=== PATIENT | male | born 1935 | race Caucasian/White ===

== ENCOUNTER 2018-04-04 15:37 | Emergency (ER) | payer MEDICARE ==
[2018-04-04 16:07] VITALS: BP 127/70
--- NOTE | 2018-04-04 16:43 | UC ---
Ji Vickers Rebecca, scribed for Daxa Yi MD on 04/04/18 at 1610 . General HPI - HPI Summary HPI Summary: Pt is an 83 y/o M who presents to [facility] accompanied by his partner Ana c/o fatigue. Pt also noted to have episodes of decreased blood pressure and elevated HR (90s) per family. The pt also reports 2 episodes during which he experienced aphasia described as difficulty findings words. Speech has been slow and fragmented, but appropriate. Each episode lasted about 5-10 minutes, which the pt described as "the words started coming out different" during which he "really had to concentrate." Pt was aware of what he was trying to say and that his words were not coming out correctly. Partner reports that during these episodes his words were "much slower than usual" though they made sense together. The first episode was last week and the second was at 1100 today, shorter than the prior. During these episodes he did not experience any CP, SOB , numbness, tingling, difficulty balancing, MEYERS, and vision changes. Additionally notes intermittent episodes of dizziness, with none currently. Partners reports occasional episodes of nausea, hypotension and elevated heart rate. Has never fallen and hit his head. Is not on blood thinners (supposed to take 81 mg ASA, but does not). PMHx HLD, HTN - is on medication of which he has been compliant without any missed doses. Does not have a PCP in [place] as he lives predominantly in [place], [place]. Pt's medications reviewed this visit - History of Current Complaint Chief Complaint: UCGeneralIllness Stated Complaint: FATIGUE Time Seen by Provider: 04/04/18 16:08 Hx Obtained From: Patient Onset/Duration: Still Present - Fatigue Timing: Intermittent Episodes Lasting: - Intermittent episodes of aphasia 5-10 minutes in length Current Severity: None Pain Intensity: 0 Pain Location at: NEGATIVE Aggravating: Nothing Alleviating: Nothing Associated Signs & Symptoms: Positive: Other - Fatigue, intermittent aphasia - Allergy/Home Medications Allergies/Adverse Reactions: Allergies Allergy/AdvReac Type Severity Reaction Status Date / Time Penicillins Allergy Rash Verified 04/04/18 15:53 Home Medications: Home Medications Iron 18 mg PO DAILY 04/04/18 [History Confirmed 04/04/18] Rosuvastatin Calcium [Crestor] 20 mg PO DAILY 04/04/18 [History Confirmed ] PMH/Surg Hx/FS Hx/Imm Hx - Additional Past Medical History Additional PMH: PMHx: HTN, Anemia Negative PMHx: COPD, DM, Thyroid disease, CVA Endocrine History: Dyslipidemia Cardiovascular History: Hypertension - Surgical History Surgical History: Yes Surgery Procedure, Year, and Place: bilat knee arthroscopies - Family History Known Family History: Positive: Cardiac Disease - parents, Other - stroke (uncle ) - Social History Occupation: Retired Lives: With Family Alcohol Use: Daily Alcohol Amount: 1 glass wine/ day Substance Use Type: None Smoking Status (MU): Former Smoker Review of Systems Constitutional: Fatigue, Other - Hypotension and elevated heart rate Skin: Negative Eyes: Negative ENT: Negative Respiratory: Negative Cardiovascular: Negative Gastrointestinal: Nausea Genitourinary: Negative Motor: Negative Neurovascular: Negative Musculoskeletal: Negative Neurological: Other - Intermittent aphasia and dizziness Psychological: Negative All Other Systems Reviewed And Are Negative: Yes - Comments Additional Review of Systems Comments: NEGATIVE: CP, SOB, numbness, tingling, difficulty balancing, MEYERS, and vision changes Physical Exam - Summary Physical Exam Summary: Vital Signs Reviewed: Yes A+Ox3, no distress Eyes: Conjunctiva Clear, MALCOLM. EOM intact and full ENT: Hearing grossly normal TM x 2 clear, mmoist, uvula midline, no exudate, no erythema Neck: Positive: Supple Respiratory: Positive: No respiratory distress, No accessory muscle use + CTA throughout no w/r Cardiovascular: RRR nl s1, s2 no m/r CBT <2 sec no bruits b/l abd soft + BS nt/nd no guarding, no distension Musculoskeletal Exam: GARCIA x 4 without difficulty Strength Intact, ROM Intact Psychological: Positive: Normal Response To Family Skin: Positive: no rash, no ecchymosis Neuro: A+Ox3 fluid speech - no dysarthria CN 2-12 intact and full + FNF b/l + heel/bee b/l 5/5 abduction, flex/ext elbow, wrist against resistant 5/5 SLE, flex/ext knee, ankle + great toe extension + gross sensation throughout no difficulty with ambulation NIH=0 Triage Information Reviewed: Yes Vital Signs: Initial Vital Signs Temp 98.1 F 04/04/18 15:56 Pulse 75 04/04/18 15:56 Resp 18 04/04/18 15:56 BP 127/70 04/04/18 15:56 Pulse Ox 100 04/04/18 15:56 Course/Dx - Course Course Of Treatment: Patient medications reviewed this visit. Allergies noted. Patient presents to urgent care with complaint of 2 episodes of difficulty with word finding. Patient states each episode lasted approximately 10 minutes. Last episode was at 11:00 this morning. Patient also reports some increased fatigue and episodes of dizziness. At the time of presentation patient does not have any complaints. Patient does have a history of hypertension as well as high cholesterol. Patient is prescribed 81 mg aspirin but does not take it. Patient does not have a primary care in the area. Patient does have a nurse liaison in [place] who tells him that his "heart is fine". Discussed with patient and his fiance concern for TIA his speech changes. Recommend patient continue emergency department for further evaluation and treatment. Patient and spouse comfortable with plan. Fianc will drive. Instructed the patient with any symptoms pulling unit floorhand and call [address] Mcmanus in the emergency department. Aware patient is coming and history provided by the pt at urgent care. - Differential Dx - Multi-Symptom Provider Diagnoses: dizziness. speech fluency changes - resolved Discharge - Sign-Out/Discharge Documenting (check all that apply): Discharge/Admit/Transfer - Discharge - Discharge Plan Condition: Stable Disposition: HOME Referrals: No Primary Care Phys,NOPCP [Primary Care Provider] - Additional Instructions: The doctor who evaluated you today is concerned that your symptoms may be related to a TIA, mini stroke. It is recommended that you go directly to the emergency department for further evaluation and treatment. It is okay that you go by private car;however, your financee. If you develop any symptoms or have concerns or changes, it is recommended to pulling unit floorhand and call 911. The emergency department at [facility] has been notified that you are coming for evaluation. - Billing Disposition and Condition Condition: STABLE Disposition: Home The documentation as recorded by the Ji blount Rebecca accurately reflects the service I personally performed and the decisions made by me, Daxa Yi MD.
== END 2018-04-04 16:35 | disposition home or self-care (01) ==
LOC: UCEAST 15:37
DX: R42 Dizziness and giddiness (principal); R53.83 Other fatigue; R47.01 Aphasia; Z88.0 Allergy status to penicillin; E78.5 Hyperlipidemia, unspecified; I10 Essential (primary) hypertension; Z82.49 Family history of ischemic heart disease and other diseases of the circulatory system; Z82.3 Family history of stroke; Z87.891 Personal history of nicotine dependence
CPT/HCPCS: 99202; G0463

== ENCOUNTER 2018-04-04 17:12 | Observation (INO) | payer MEDICARE ==
[2018-04-04 18:00] LABS: Hematocrit 37 % (42-52); Hemoglobin 12.5 g/dl (14.0-18.0); Mean Corpuscular HGB Conc 34 g/dl (31-36); Mean Corpuscular Hemoglobin 30 pg (27-31); Mean Corpuscular Volume 88 fL (80-94); Mean Platelet Volume 7.3 um3 (7.4-10.4); Platelet Count 231 10^3/ul (150-450); Red Blood Count 4.18 10^6/ul (4.00-5.40); Red Cell Distribution Width 14 % (10.5-15); White Blood Count 5.1 10^3/ul (3.5-10.8)
--- NOTE | 2018-04-04 18:06 | RAD ---
INDICATION: Weakness and slurred speech COMPARISON: None. TECHNIQUE: Contiguous axial sections of the brain were obtained from the skull base to the vertex without contrast. FINDINGS: The ventricles, cisterns and sulci mild symmetrical involutional changes. The macias-white matter differentiation is adequately maintained and there is no sulcal effacement. No significant focal abnormality or mass effect is present. There is no evidence for intracranial hemorrhage. No significant focal osseous abnormality is present. The visualized portion of the paranasal sinuses appear clear. The mastoid air cells are well aerated bilaterally. IMPRESSION: Normal CT of the brain.
[2018-04-04 18:07] LABS: INR 0.95 (0.77-1.02)
[2018-04-04 18:16] LABS: EGFR Non-African American 71.4 (>60)
[2018-04-04] MEDS ORDERED: Iohexol 350* (CONTRAST) 500 ML MDV IV ONE (19:06)
[2018-04-04] MEDS ORDERED: Ondansetron INJ* 2 MG/ML VIAL IV PRN (19:15)
[2018-04-04] MEDS ORDERED: Acetaminophen TAB* 325 MG PO PRN (19:15)
--- NOTE | 2018-04-04 20:10 | RAD ---
CPT II: CPT II Codes: 3100F INDICATION: Slurred speech COMPARISON: Same day noncontrast CT brain the TECHNIQUE: A CT angiogram of the head and neck was performed with 80 cc of Omnipaque 350. Contiguous axial sections were obtained from the thoracic inlet through the [place]. Images were reconstructed in the sagittal, coronal planes and in a 3-D volume rendered format. The distal cervical internal carotid artery diameter is used as the denominater for stenosis measurement. CTA NECK: The common and internal carotid arteries are patent without hemodynamically significant stenosis. Right: Below the carotid bifurcation the common carotid artery measures 6 mm in diameter. There is coarse calcification at the right carotid bulb but the bulb measures nearly 9 mm in short axis diameter. This yields 0% degree stenosis. Left: Below the carotid bifurcation the left common carotid artery measures 6 mm in diameter. There is eccentric coarse calcification at the carotid bulb narrowing the lumen to 7 mm yielding 0% degree stenosis. The vertebral arteries are patent without gross abnormality. CTA of the brain: The internal carotid, anterior and middle cerebral arteries appear are patent without high grade stenosis or occlusion. The right A1 segment of the anterior cerebral artery is diminutive relative to the left. 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 The vertebral, basilar and posterior cerebral arteries appear patent without high grade stenosis or occlusion. The right posterior cerebral artery branches off of the middle cerebral artery. Bilaterally the posterior communicating arteries appear to be absent. No focal luminal filling defect, aneurysm or vascular malformation is seen. IMPRESSION: 1. There is no hemodynamically significant stenoses at either carotid bulb. 2. Although there is no measurable stenosis at the left carotid bulb, there is coarse calcification that is eccentric extending into the lumen of the left carotid bulb. 3. 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 4. If there is strong clinical concern for acute infarction, MRI is advised.
[2018-04-04] MEDS ORDERED: Aspirin 81 mg CHEW TAB* 81 MG TAB.CHEW PO ONE (20:14)
--- NOTE | 2018-04-04 20:21 | RAD ---
HISTORY: Slurred speech COMPARISONS: Same day CTA of the head and neck TECHNIQUE: The following sequences were obtained of the head: Sagittal T1-weighted images, axial T2-weighted images, axial FLAIR images, axial susceptibility weighted images, axial T1-weighted images. Additionally, axial diffusion-weighted images were obtained with calculated apparent diffusion coefficients.. FINDINGS: HEMORRHAGE/INFARCT: There is no hemorrhage or acute infarct. MASSES/SHIFT: There is no mass or shift. EXTRA-AXIAL SPACES/MENINGES: There are no extra-axial fluid collections. SULCI AND VENTRICLES: There is symmetrical bilateral involutional change. CEREBRUM: There are scattered subcortical and periventricular T2 Bright hyperintensities as well as increased T2 signal adjacent to the ventricles most consistent with chronic microvascular disease. BRAINSTEM: There are no focal parenchymal abnormalities. CEREBELLUM: There are no focal parenchymal abnormalities. The cerebellar tonsils are normal in size and position. SELLA: The pituitary gland measures 1.3 x 1.5 cm in the axial plane and 1.4 cm in the cephalocaudal projection. The pituitary gland is hypointense on T1-weighted images and minimally hyperintense on T2-weighted imaging. Signal intensity is fairly homogenous. PINEAL: The pineal region is clear. CP ANGLE/TEMPORAL BONES: The labyrinthine structures are grossly normal. VESSELS: Normal flow-voids are noted within the visualized vertebral vasculature. DIFFUSION ABNORMALITIES: There are no diffusion abnormalities. PARANASAL SINUSES/MASTOIDS: The paranasal sinuses are clear. ORBITS: The orbits are unremarkable. BONES AND SOFT TISSUE: No bone or soft tissue abnormalities are noted. IMPRESSION: 1. 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 THERE IS NO MRI EVIDENCE OF FOCAL OR TERRITORIAL INFARCTION. IF THERE EXISTS CLINICAL CONCERN FOR ACUTE DEMYELINATING DISEASE, FURTHER CHARACTERIZATION WITH CONTRAST ENHANCEMENT IS ADVISED. 2. 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
[2018-04-04] MEDS: Heparin VIAL(*) 5000 UNITS/ML VIAL (FIVE THOUSAND) SUBCUT SCH (23:12)
[2018-04-05 00:09] LABS: Hematocrit 35 % (42-52)
--- NOTE | 2018-04-05 01:49 | HP ---
CC: Dr. Gonzalez, [place], ; Dr. Hu* HISTORY AND PHYSICAL: DATE OF ADMISSION: 04/04/18 PRIMARY CARE PROVIDER: Dr. Gonzalez in [place], phone number [phone] ATTENDING PHYSICIAN WHILE IN THE HOSPITAL: Dr. Kyung Doss* (report being dictated by Gianfranco Hernandez NP) CHIEF COMPLAINT: Difficulty with word finding. CONSULTING NEUROLOGIST: Dr. Hu. HISTORY OF PRESENT ILLNESS: Mr. Giraldo is an 83-year-old male patient. He has a history of hyperlipidemia, hypertension, and a history of anemia. He presents today stating that about a week ago, he noticed that during a meeting he was having difficulty with his speech. He noticed that he was having trouble finding his words. He says it lasted several minutes. He does not really know how long. He said it lasted for a while. He ignored this, but today again he noticed that he was having trouble with his speech, particularly getting his words out, lasted about 5 to 10 minutes. He had no facial drooping , no trouble with vision, no weakness to the one side. He stated he did not feel dizzy. He was not falling to one side. He denied having any focal weakness to one extremity. He was having a real hard time. He knew what he wanted to say, but he could not get the words out. The symptoms did resolve, but his partner was concerned and wanted him to be evaluated in the ER, so she decided to come in. Also, he does note that he has been feeling fatigued and weakened over the last several weeks. He says that he recently restarted taking his iron. He has a history of anemia. He says his last count of his hemoglobin was around 11. He said since starting taking the iron, he has felt a little nauseous and in addition to this, he has noticed that his stools have become dark. He denies having any abdominal pain or any nausea or vomiting. He denies any andra blood. He presented to the ED. There was concern of a possible TIA and we were asked to evaluate for admission. PAST MEDICAL HISTORY: Significant for: 1. Hypertension. 2. Hyperlipidemia. 3. Anemia. PAST SURGICAL HISTORY: Significant for: 1. Tonsillectomy. 2. Arthroscopy. HOME MEDICATIONS: Include: 1. Toprol-XL 50 mg daily. 2. Iron 18 mg daily. 3. Crestor 20 mg p.o. daily. ALLERGIES TO MEDICATIONS: Include PENICILLIN. FAMILY HISTORY: His mother had an [place] at the age of 91. Father had a history of CAD. SOCIAL HISTORY: He is a former smoker. He quit about 36 years ago. He does have 1 glass of wine at night. His surrogate decision maker is his Rosaura farley, and his daughter and son. REVIEW OF SYSTEMS: There is no documented fever. He denies any significant weight change. There is no double vision. There is no ear discharge. Denied having any rhinorrhea. No sore throat. No thyroid enlargement. Denies having any chest pain. There is no orthopnea. There is no nocturnal dyspnea. He denies having any abdominal pain. There is no nausea. No vomiting. No dysuria. No frequency. No seizure. There is no loss of conscious. No pruritus. No skin ulcerations. Review of 14 systems completed, all others negative. PHYSICAL EXAMINATION GENERAL: At this time, Mr. Giraldo is an 83-year-old male patient. He is sitting in the ED stretcher. He appears to be well-nourished, well-developed. He does not appear to be in any acute distress. VITAL SIGNS: Blood pressure 130/72, pulse 71, respirations are 18, O2 sat 98%, temperature 97.1. HEENT: Head: Atraumatic, normocephalic. Eyes: EOMs are intact. Sclerae were anicteric and not pale. Throat: Oral mucosa appears to be moist. No oropharyngeal erythema. NECK: Supple. LUNGS: Clear to auscultation. No wheezes, rales, or rhonchi. HEART: Sounds S1, S2. Regular rate and rhythm. No murmurs, rubs, or gallops. ABDOMEN: Soft, flat, nontender. Bowel sounds are present. EXTREMITIES: Pulses were 2+ throughout. He had +2 pitting edema in the lower extremities, but he says this is chronic for him. He says this is secondary to a leaky valve. Pulses were 2+ throughout. He had 5/5 strength. NEUROLOGIC: He is awake. He is alert. His speech is clear. His tongue is midline. His manager combination were equal. Navion-ev-ufpb intact bilaterally. Cranial nerves II through XII were intact. Rzbz-qp-[id number] intact bilaterally. He had good strength in all extremities. Again, speech is fluent and clear. No gross focal deficits. SKIN: Intact. DIAGNOSTIC STUDIES/LAB DATA: WBC of 5.1, RBC of 4.18, hemoglobin 12.5, hematocrit 37, platelet count 231. INR 0.95, PTT of 25.8. Sodium is 132, potassium 4, chloride 98, bicarb 25, BUN 14, creatinine of 1.00, glucose was 98 , calcium 9.2. Total bili 0.6, AST 22, ALT 10, alk phos 49. Albumin of 3.7. Urine is pending. He did have a brain CT obtained today, impression: Normal CT of the brain. He had a CTA of the head and neck, impression: There is no hemodynamically significant stenosis at either carotid bulbs. Although there is no measurable stenosis at the left carotid bulb, there is a coarse calcification that is eccentric extending into the lumen of the left carotid bulb. 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 If there is strong clinical suspicion for acute infarct, MRI is advised. He did have an MRI done today, which revealed MRI findings are consistent with age- appropriate chronic microvascular disease. There is no MRI evidence of focal or territorial infarct. If there exists clinical concern for acute demyelinating disease, further characterization with contrast enhancement is advised. Mildly enlarged pituitary gland for the patient's age of uncertain clinical significance. He did have an EKG obtained today. I have no previous for comparison, but the EKG today did show normal sinus rhythm, rate of 71, no ST elevations. He had inverted T waves in lead III and no other significant findings were noted. Old medical records were reviewed. ASSESSMENT AND PLAN: Mr. Giraldo is an 83-year-old male patient coming into the emergency department today with complaints of difficulty with speech that has now resolved on evaluation. We were asked to evaluate due to possible transient ischemic attack. He will be admitted under observation status. 1. Transient ischemic attack. At this point, I did touch with Dr. Hu. MRI was negative. CTA is negative for any significant stenosis. I will admit him for telemetry, give him aspirin now, go ahead and get lipids, A1c in the morning, place him on telemetry, echo with bubble study, and get Neurology to evaluate. 2. History of weakness. This has been going on for about the last month. I am checking a TSH, B12, and cortisol. We will continue to follow. His H and H are stable. 3. Anemia. H and H again stable. We will follow this. I am repeating another H and H later tonight because of reported dark stools. We have not had any done here and I forwarded a Hemoccult just to be safe. I suspect this is probably secondary to the patient's iron intake. 4. Hypertension. Continue meds as prescribed. 5. Hyperlipidemia. Continue statin therapy. I am checking lipid panel. 6. DVT prophylaxis: I have ordered heparin subcu. 7. Code status: Full code 8. Fluids, electrolytes, nutrition: He can have a heart healthy diet. TIME SPENT: Time spent on admission 60 minutes, greater than half of the time spent [id number] with the patient obtaining my history and physical; other half of the time spent going over the plan of care with the patient and implementing plan of care. I did discuss the plan of care with my attending, Dr. Doss; she is in agreement. GIANFRANCO HERNANDEZ NP [id number]/[facility] #: [id number] TRAVIS
--- NOTE | 2018-04-05 02:30 | CONS ---
CC: Primary care physician NEUROLOGY CONSULT REPORT: DATE OF CONSULT: 04/04/18. REQUESTING PROVIDER: Gianfranco Hernandez NP REASON FOR CONSULT: A few minutes episode of aphasia HISTORY OF PRESENT ILLNESS: The patient is an 83-year-old right-handed male, who about 10 a.m. this morning had an episode that while he was talking to a director of real estate for selling his property he was not able to talk for a few minutes. He knew what he wanted to say, but the words were not coming out. This was not very obvious to the person whom he was talking to neither it was to his fiance. This episode lasted for not more than 2 to 3 minutes. He did not have any other associated symptoms at that time including no numbness in the face or arms or legs, or dizziness. Afterwards, his speech was not dysarthric. The patient had a similar episode in a similar situation (when he was talking to real estate about selling his property) last week that lasted a few minutes. In both occasions he thinks he became a bit exicted and emotional during the conversation prior to these events. He never had any similar episodes in the past. After a few minutes, the patient completely returned back to his baseline. He is not taking antiplatelets. PAST MEDICAL HISTORY: 1. Hypertension. 2. Hyperlipidemia. 3. He is also on iron pills for iron-deficiency anemia. PAST SURGICAL HISTORY: 1. Tonsillectomy 2. Arthroscopy. MEDICATIONS: Home medications include: 1. Crestor 20 mg p.o. daily. 2. Metoprolol XL 50 mg daily. 3. Iron pills 18 mg p.o. daily. ALLERGIES: PENICILLIN. FAMILY HISTORY: Negative for significant neurological disorders. Mother of [place] and father had history of coronary artery disease. SOCIAL HISTORY: The patient retired about 30 years ago. 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 He quit smoking about 30 years ago. No drugs. He drinks a glass of wine nightly. REVIEW OF SYSTEMS: Complete review of systems was performed and other than what was mentioned above is positive for feeling tired and fatigued in the past few weeks. PHYSICAL EXAM: Blood pressure is 143/78, respiratory rate 13, pulse rate 86. The patient is awake, alert, and oriented x3. Pupils are symmetric and reactive to light. Extraocular movements are intact. Visual ruiz are intact by confrontation. Face is symmetric with the strong facial muscles. -III intact to light touch and pinprick. Tongue is in midline. Palate elevates upwards. Motor exam is 5/5 throughout. There is no pronator drift. Sensation is intact to light touch, and pinprick in the upper and lower extremities. [id number] is intact bilaterally. Gait is narrow-based and steady. Deep tendon reflexes are 2+ in the upper and lower extremities and are symmetric. NIH Stroke Scale is 0. DIAGNOSTIC STUDIES/LAB DATA: WBC 5.1, hemoglobin 12.5, hematocrit 37, platelet 231. INR is 0.95. Sodium is 132. Chloride 98, BUN 14, AST 22, ALT 10. Imaging: By the time I saw the patient, an MRI of the brain had been done, which showed age-appropriate chronic microvascular disease. There is no MRI evidence of focal or territorial infarction. CT angiogram of the head and neck was also done, which includes no hemodynamically significant stenosis at either carotid bulb. ASSESSMENT AND PLAN: The patient is an 83-year-old male with two episodes of sudden difficulty with talking hat lasted a few minutes, one today and the other one last week. The symptoms warrants a workup for transient ischemic attack. The MRI of the brain and CT angiogram of the head and neck is already completed and are unremarkable. He needs an echocardiogram of the heart and telemonitoring. If no contraindication from GI standpoint to continue on antiplatelets. Continue statins. Discussed with the patient and his questions answered. [id number]/[facility] #: [id number] TRAVIS
[2018-04-05 03:28] LABS: Urine Appearance Clear; Urine Blood Negative (Negative); Urine Color Straw; Urine Ketones Negative (Negative); Urine Protein Negative (Negative); Urine Specific Gravity 1.015 (1.010-1.030); Urine Urobilinogen Negative (Negative)
[2018-04-05 05:35] LABS: ABS Basophils 0 10^3/ul (0-0.2); ABS Eosinophils 0.3 10^3/ul (0-0.6); ABS Lymphocytes 1.4 10^3/ul (1.0-4.8); ABS Monocytes 0.6 10^3/ul (0-0.8); ABS Neutrophils 2.2 10^3/ul (1.5-7.7); ABS Nucleated RBC 0 10^3/ul; Eosinophil % 6.1 % (0-6); Hematocrit 34 % (42-52); Hemoglobin 11.8 g/dl (14.0-18.0); Lymphocyte % 31.6 % (25-47); Mean Corpuscular HGB Conc 35 g/dl (31-36); Mean Corpuscular Hemoglobin 30 pg (27-31); Mean Corpuscular Volume 87 fL (80-94); Nucleated Red Blood Cells % 0; Platelet Count 229 10^3/ul (150-450); Red Cell Distribution Width 14 % (10.5-15); White Blood Count 4.5 10^3/ul (3.5-10.8)
[2018-04-05] MEDS: Heparin VIAL(*) 5000 UNITS/ML VIAL (FIVE THOUSAND) SUBCUT SCH ×2 (05:50→14:31)
[2018-04-05 05:52] LABS: EGFR Non-African American 76.6 (>60)
[2018-04-05] MEDS ORDERED: CMC:Rosuvastatin (NF) 20 MG TAB PO SCH (09:00)
[2018-04-05] MEDS ORDERED: Aspirin 81 mg CHEW TAB* 81 MG TAB.CHEW PO SCH (09:00)
[2018-04-05] MEDS ORDERED: IRON 18 MG PO SCH (09:00)
[2018-04-05] MEDS ORDERED: Metoprolol Succinate XL TAB* 50 MG PO SCH (09:00)
--- NOTE | 2018-04-05 12:02 | ECHO ---
Patient: JUAN CARLOS OJEDA [facility] Rec#: [id number] : 1935 Date: 04/05/2018 Age: 83y Height: 180.3 cm / 71.0 in Weight: 77.1 kg / 169.9 lbs Sex: M BSA: 2 Room#: [facility] Admit Date#: 04/04/2018 Type: Inpatient Referring: Gianfranco Hernandez NP Reading: Vikas Shah MD Agricultural Mechanic: Mckenzie Ortiz RN RDCS Transthoracic Echocardiogram Indication: TIA BP: 104/70 HR: 62 Rhythm: NSR Findings History: HTN, HLD, anemia, former smoker. Technical Comments: The study quality is fair. The study is technically limited due to the patient's smoking history. Completed at 1125. Left Ventricle: The left ventricular chamber size is decreased. Mild to moderate concentric left ventricular hypertrophy is observed. There is increased basal septal hypertrophy noted without evidence of an increased gradient across the left ventricular outflow tract. Global left ventricular wall motion and contractility are within normal limits. There is normal left ventricular systolic function. The estimated ejection fraction is 55-60%. There is an E to A reversal in the mitral valve flow pattern suggestive of diastolic dysfunction. Left Atrium: The left atrial chamber size is normal. Right Ventricle: The right ventricle wall thickness is mildly increased. The right ventricular cavity size is normal. The right ventricular global systolic function is normal. Right Atrium: The right atrial cavity size is normal. A patent foramen ovale is demonstrated by agitated contrast. Aortic Valve: The aortic valve is trileaflet. The aortic valve leaflets are mildly thickened. Systolic excursion of the aortic valve cusps is reduced. There is aortic annular calcification. There is trace to mild aortic regurgitation. There is mild aortic stenosis. Mitral Valve: Moderate mitral annular calcification present. The mitral valve leaflets are mildly thickened. There is mild mitral valve prolapse. There is mild mitral regurgitation. There is borderline mitral stenosis. Tricuspid Valve: The tricuspid valve leaflets are normal. There is trace to mild tricuspid regurgitation. Unable to estimate the right ventricular systolic pressure. There is no tricuspid stenosis. Pulmonic Valve: The pulmonic valve appears normal. There is a trace pulmonic regurgitation. There is no pulmonic stenosis. Pericardium: There is no significant pericardial effusion. A pericardial fat pad is visualized. Aorta: There is no dilatation of the ascending aorta. There is no dilatation of the aortic arch. 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 Pulmonary Artery: The main pulmonary artery is not well visualized. Venous: The inferior vena cava appears normal in size. There is a greater than 50% respiratory change in the inferior vena cava dimension. Contrast: Normal saline was used as contrast for the bubble study. Images 1 and 2. Summary: There was not any prior study for comparison. Conclusions The left ventricular chamber size is decreased. Mild to moderate concentric left ventricular hypertrophy is observed. There is increased basal septal hypertrophy noted without evidence of an increased gradient across the left ventricular outflow tract. The estimated ejection fraction is 55-60%. There is an E to A reversal in the mitral valve flow pattern suggestive of diastolic dysfunction. A patent foramen ovale is demonstrated by agitated contrast. Systolic excursion of the aortic valve cusps is reduced. There is trace to mild aortic regurgitation. There is mild aortic stenosis. There is mild mitral valve prolapse. There is mild mitral regurgitation. There is borderline mitral stenosis. There is trace to mild tricuspid regurgitation. Unable to estimate the right ventricular systolic pressure. There is a trace pulmonic regurgitation. 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 Measurements Name Value Normal Range RVDdMajor (2D) 3.1 cm (2.2 - 4.4) RVAW (2D) 0.6 cm (0.2 - 0.5) RAd ISD 4CH 4.8 cm (3.4 - 4.9) RA (A4C)W 3.8 cm (2.9 - 4.6) IVSd (2D) 1.4 cm (0.6 - 1) LVPWd (2D) 1.1 cm (0.6 - 1) LVIDd (2D) 3.3 cm (3.6 - 5.4) LVIDs (2D) 2.2 cm - LV FS (2D) 33 % (25 - 45) Aortic Annulus 2.4 cm (1.4 - 2.6) Ao root diameter (2D) 4.1 cm (2.1 - 3.5) Ascending Ao 3.3 cm (2.1 - 3.4) Aortic arch 2.7 cm (1.8 - 3.4) LA dimension (AP) 2D 3 cm (2.3 - 3.8) LAd ISD 4CH 4.4 cm (2.9 - 5.3) LA ISD 4CH W 3.9 cm (2.5 - 4.5) Name Value Normal Range LA ESV SP 4CH (A/L) 46 ml - LA ESV SP 2CH (A/L) 54 ml - LA ESV BP (A/L) 51 ml - LA ESV BP (A/L) index 26 ml/m2 - LA ESV SP 4CH (MOD) 43 ml - LA ESV SP 2CH (MOD) 51 ml - Name Value Normal Range MV E-wave Vmax 0.88 m/sec - MV deceleration time 259 msec - MV A-wave Vmax 1.1 m/sec - MV E:A ratio 0.83 ratio - LV septal e' Vmax 0.06 m/sec - LV lateral e' Vmax 0.07 m/sec - LV E:e' septal ratio 14.7 ratio - LV E:e' lateral ratio 12.6 ratio - Name Value Normal Range AV Vmax 1.6 m/sec - AV VTI 38.6 cm - AV peak gradient 9.6 mmHg - AV mean gradient 5 mmHg - LVOT diameter 2 cm - LVOT Vmax 0.81 m/sec - LVOT VTI 21.2 cm - LVOT peak gradient 2.7 mmHg - LVOT mean gradient 1.4 mmHg - DOI (VTI) 0.55 ratio - DOI (Vmax) 0.51 ratio - ABDON (continuity Vmax) 1.6 cm2 - ABDON (continuity VTI) 1.7 cm2 - JORDIN Vmax 0.38 m/sec - Name Value Normal Range MV Vmax 1.3 m/sec - MV VTI 39.9 cm - MV peak gradient 6.8 mmHg - MV mean gradient 2.4 mmHg - MV PHT 87 msec - MVA (PHT) 2.5 cm2 - MVA (continuity VTI) 1.7 cm2 - Name Value Normal Range IVC diameter 1.7 cm - Name Value Normal Range PV Vmax 0.84 m/sec -
[2018-04-05 12:27] VITALS: BP 104/52
--- NOTE | 2018-04-05 13:59 | RAD ---
INDICATION: Lower extremity soft tissue edema. Assess for DVT. COMPARISON: No relevant prior exams available on the [facility] PACS for comparison. TECHNIQUE: Yang scale, color Doppler, and spectral analysis of the deep veins of the BILATERAL lower extremities. Vessel compression, phasicity, and augmentation assessed. REPORT: The RIGHT common femoral, great saphenous, profunda femoral, femoral, popliteal, peroneal, and posterior tibial veins are patent. The LEFT common femoral, great saphenous, profunda femoral, femoral, popliteal, peroneal, and posterior tibial veins are patent. IMPRESSION: #. Negative for RIGHT or LEFT lower extremity DVT.
--- NOTE | 2018-04-05 17:47 | PN ---
Progress Note - Progress Note Date of Service: 04/05/18 SOAP: Neurology progress note Date of servie: 04/05/18 Subjective: I saw and examined the patient around 1pm today. Patient remained asymptomatic. Objective: Vital Signs Temp Pulse Resp BP Pulse Ox 97.3 F 65 16 104/52 98 04/05/18 12:08 04/05/18 12:08 04/05/18 12:08 04/05/18 12:08 04/05/18 12:08 Laboratory Last Values WBC 4.5 10^3/ul (3.5-10.8) 04/05/18 05:23 RBC 3.90 10^6/ul (4.00-5.40) L 04/05/18 05:23 Hgb 11.8 g/dl (14.0-18.0) L 04/05/18 05:23 Hct 34 % (42-52) L 04/05/18 05:23 MCV 87 fL (80-94) 04/05/18 05:23 MCH 30 pg (27-31) 04/05/18 05:23 MCHC 35 g/dl (31-36) 04/05/18 05:23 RDW 14 % (10.5-15) 04/05/18 05:23 Plt Count 229 10^3/ul (150-450) 04/05/18 05:23 MPV 7.0 um3 (7.4-10.4) L 04/05/18 05:23 Neut % (Auto) 47.7 % (38-83) 04/05/18 05:23 Lymph % (Auto) 31.6 % (25-47) 04/05/18 05:23 [place] % (Auto) 13.6 % (0-7) H 04/05/18 05:23 Eos % (Auto) 6.1 % (0-6) H 04/05/18 05:23 Baso % (Auto) 1.0 % (0-2) 04/05/18 05:23 Absolute Neuts (auto) 2.2 10^3/ul (1.5-7.7) 04/05/18 05:23 Absolute Lymphs (auto) 1.4 10^3/ul (1.0-4.8) 04/05/18 05:23 Absolute Monos (auto) 0.6 10^3/ul (0-0.8) 04/05/18 05:23 Absolute Eos (auto) 0.3 10^3/ul (0-0.6) 04/05/18 05:23 Absolute Basos (auto) 0 10^3/ul (0-0.2) 04/05/18 05:23 Absolute Nucleated RBC 0 10^3/ul 04/05/18 05:23 Nucleated RBC % 0 04/05/18 05:23 INR (Anticoag Therapy) 0.95 (0.77-1.02) 04/04/18 17:51 APTT 25.8 seconds (26.0-36.3) L 04/04/18 17:51 Sodium 133 mmol/L (135-145) L 04/05/18 05:23 Potassium 4.4 mmol/L (3.5-5.0) 04/05/18 05:23 Chloride 102 mmol/L (101-111) 04/05/18 05:23 Carbon Dioxide 28 mmol/L (22-32) 04/05/18 05:23 Anion Gap 3 mmol/L (2-11) 04/05/18 05:23 BUN 16 mg/dL (6-24) 04/05/18 05:23 Creatinine 0.94 mg/dL (0.67-1.17) 04/05/18 05:23 Est GFR ( Amer) 92.7 (>60) 04/05/18 05:23 Est GFR (Non-Af Amer) 76.6 (>60) 04/05/18 05:23 BUN/Creatinine Ratio 17.0 (8-20) 04/05/18 05:23 Glucose 96 mg/dL (70-100) 04/05/18 05:23 Hemoglobin A1c 5.8 % (4.0-5.6) H 04/05/18 05:23 Calcium 8.9 mg/dL (8.6-10.3) 04/05/18 05:23 Total Bilirubin 0.60 mg/dL (0.2-1.0) 04/04/18 17:51 AST 22 U/L (13-39) 04/04/18 17:51 ALT 10 U/L (7-52) 04/04/18 17:51 Alkaline Phosphatase 49 U/L (34-104) 04/04/18 17:51 Total Protein 6.3 g/dL (6.4-8.9) L 04/04/18 17:51 Albumin 3.7 g/dL (3.2-5.2) 04/04/18 17:51 Globulin 2.6 g/dL (2-4) 04/04/18 17:51 Albumin/Globulin Ratio 1.4 (1-3) 04/04/18 17:51 Triglycerides 146 mg/dL 04/05/18 05:23 Cholesterol 142 mg/dL 04/05/18 05:23 LDL Cholesterol 82 mg/dL 04/05/18 05:23 HDL Cholesterol 30.7 mg/dL 04/05/18 05:23 Vitamin B12 438 pg/mL (180-914) 04/04/18 17:51 TSH 1.81 mcIU/mL (0.34-5.60) 04/04/18 17:51 Cortisol 4.54 mcg/dL 04/04/18 17:51 Urine Color Straw 04/04/18 03:10 Urine Appearance Clear 04/04/18 03:10 Urine pH 6.0 (5-9) 04/04/18 03:10 Ur Specific [place] 1.015 (1.010-1.030) 04/04/18 03:10 Urine Protein Negative (Negative) 04/04/18 03:10 Urine Ketones Negative (Negative) 04/04/18 03:10 Urine Blood Negative (Negative) 04/04/18 03:10 Urine Nitrate Negative (Negative) 04/04/18 03:10 Urine Bilirubin Negative (Negative) 04/04/18 03:10 Urine Urobilinogen Negative (Negative) 04/04/18 03:10 Ur Leukocyte Esterase Negative (Negative) 04/04/18 03:10 Urine Glucose Negative (Negative) 04/04/18 03:10 Home Medications Medication Instructions Recorded Confirmed Type Metoprolol Succinate XL TAB* 50 mg PO DAILY 06/14/13 04/04/18 History [Toprol XL TAB*] Iron 18 mg PO DAILY 04/04/18 04/04/18 History Acetaminophen TAB* [Tylenol TAB*] 650 mg PO Q4H PRN tab 04/05/18 Rx Aspirin EC TAB* [Ecotrin EC Low 81 mg PO DAILY #30 tab.ec 04/05/18 Rx Dose 81 MG*] Rosuvastatin Calcium 10 mg PO DAILY #30 tablet 04/05/18 Rx The patient is awake, alert, and oriented x3. Pupils are symmetric and reactive to light. Extraocular movements are intact. Visual ruiz are intact by confrontation. Face is symmetric with the strong facial muscles. -III intact to light touch and pinprick. Tongue is in midline. Palate elevates upwards. Motor exam is 5/5 throughout. There is no pronator drift. Sensation is intact to light touch, and pinprick in the upper and lower extremities. [id number] is intact bilaterally. Gait is narrow-based and steady. Deep tendon reflexes are 2+ in the upper and lower extremities and are symmetric. NIH Stroke Scale is 0. MRI unremarkable. CTA head and neck did not reveal any significant stenosis. Echo cardiogram revealed a patient foramen [place]. Echo doppler of the LE negative for DVT. Assessment and Plan: 83-year-old male presenting with 2 episodes of difficulty talking for a few minutes, and 1 week apart. Both of these episodes happened in the setting of emotional excitement (details in H&P). I am not quite sure if these episodes were really TIA but certainly it remains a possibility. Specially considering his PFO, necessary to start antiplatelets. There is not enough evidence to justify surgical closure of PFO. Increase the dose of statin with a goal of LDL < 70. Above were discussed with the patient. Time spent at bedtime at least 25 minutes.
--- NOTE | 2018-04-06 03:23 | DS ---
CC: Dr. Gonzalez, [place]; Dr. Pop Claire, [place] * DISCHARGE SUMMARY: DATE OF ADMISSION: 04/04/18 DATE OF DISCHARGE: 04/05/18 PRIMARY CARE PROVIDER: Dr. Gonzalez in [place]. INDIRECT SALES REPRESENTATIVE: Dr. Pop Claire in [place], [place] MY ATTENDING WHILE IN THE HOSPITAL: Kyung Doss MD * (DICTATED BY SALVADOR NAYLOR) PRIMARY DISCHARGE DIAGNOSIS: Possible patent foramen ovale. SECONDARY DISCHARGE DIAGNOSES: 1. Hypertension. 2. Hyperlipidemia. 3. Iron deficiency anemia. STUDIES DONE WHILE IN THE HOSPITAL: Brain CT from 04/04/[address] of the brain. Electrocardiogram read as normal sinus rhythm, normal axis, rate 71, QTc of 471, T-wave inversions in III. Head CTA from 04/04/18 read as no hemodynamically significant stenosis. No measurable stenosis at the left carotid bulb, coarse calcification that is eccentric extending into the lumen of the left carotid bulb. 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 There is no MRI evidence of focal or territorial infarction. There exists clinical concern for acute demyelinating disease, further characterization with contrast enhancement is advised. Mildly enlarged pituitary gland for the patient's age of uncertain clinical significance. Venous Doppler study from 04/05/18 read as negative for right or left lower extremity DVT. Transthoracic echocardiogram read as left ventricular chamber size decreased, [id number] concentric left ventricular hypertrophy is observed. There is increased basal septal hypertrophy noted without evidence of an increased gradient left ventricular outflow tract, global left ventricular wall motion and contractility within normal limits. There is normal left ventricular systolic function. Estimated ejection fraction 55% to 60%. There is E to A reversal in the mitral valve flow pattern suggestive of diastolic dysfunction. Left atrial chamber size is normal. Right ventricular wall thickness is mildly increased. Right ventricular cavity is normal. The global right ventricular systolic function is normal. Mild aortic stenosis. Mild mitral valve prolapse. Mild mitral regurgitation. Borderline mitral stenosis. Trace to mild tricuspid regurgitation. Unable to estimate right ventricular systolic pressure. Trace pulmonic regurgitation. Mild dilation of the aortic root. MEDICATIONS AT DISCHARGE: 1. Metoprolol succinate 50 mg p.o. daily. 2. Iron 18 mg p.o. daily. 3. Rosuvastatin 10 mg p.o. daily. 4. Tylenol 650 mg p.o. q.4 hours as needed. 5. Aspirin 81 mg p.o. daily. New medications at discharge: 1. Aspirin. 2. Rosuvastatin. 3. Tylenol. Medications discontinued at discharge: Rosuvastatin 5 mg p.o. daily. Note that the patient states that he was taking a different dose than was noted in his H and P. HOSPITAL COURSE: This is a brief summary of the patient's presentation. For more details, please see the history and physical from Gianfranco Hernandez NP on 02/15. In brief, the patient is an 83-year-old male with past medical history significant for the above who presented after 2 episodes approximately twice, 1 week apart without any other focal deficits. The patient states he knew what words he wanted and that he was just unable to find them. 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 The patient noted having black stools, but has recently been re-taking iron due to fatigue. The patient was admitted to the hospital, had studies read as above. The patient was treated for likely TIA. The patient had stopped taking his aspirin approximately 2 months ago. The patient was restarted on his aspirin. The patient had a lipid profile which showed a LDL of 82. The patient had a hemoglobin A1c of 5.8. No other significant abnormalities on laboratory data except for sodium of 133 and mild anemia with the hemoglobin of 12.5. The patient, on his transthoracic echocardiogram, was found to have a patent foramen ovale. The patient had recently traveled out from [place] approximately 5 weeks before but had no swelling or pain in his lower extremities. The patient is normotensive, non-tachycardic and nonfebrile and has no other laboratory abnormalities while he was in the hospital. The patient felt great, had no recurrent episodes of aphasia, no weakness. The patient was seen in consultation by Dr. Drew Hu who believed that this was possibly a TIA but also possibly just related to stress. He recommended antiplatelet monotherapy with aspirin and this was not a failure of aspirin as he was off his aspirin. He recommended a lipid goal of 70 for presumed TIA. No dual antiplatelet therapy. No anticoagulation was recommended. It was not recommended to close his PFO. The patient was stable and amenable for discharge on 04/05/18. PHYSICAL EXAMINATION ON THE DATE OF DISCHARGE: General: The patient is an 83- year- old male who appears younger than stated age and sitting comfortably in bed, in no acute distress. Vital Signs: At the time of evaluation, temperature 97.3, pulse rate 65, respiratory rate 16, oxygen saturation 98% on room air, blood pressure 104/52. HEENT: Head: Normocephalic and atraumatic. Sclerae anicteric. No conjunctival injection. Nasal mucosa is moist. Oral mucosa is moist. No pharyngeal erythema, discharge, or exudate. Neck: Supple and nontender. No lymphadenopathy. No carotid bruits auscultated. No JVD. Cardiac: Regular rate and rhythm. No clicks, murmurs, gallops or rubs. Pulses are 2+ in bilateral dorsalis pedis, posterior tibialis and radial areas. Respiratory: Clear to auscultation bilaterally. No wheezes, rales, or rhonchi. Good air exchange bilaterally. Abdomen: Soft, nontender and nondistended. Bowel sounds present, normoactive in all 4 quadrants. No hepatosplenomegaly. No abdominal bruits auscultated. No hepatojugular reflux. Genitourinary: No suprapubic or CVA tenderness. Skin: Clean, dry and intact. No rash. Neuro: Cranial nerves II through XII intact. No focal deficits. Alert and oriented x3. No aphasia. Cerebellar testing performed without difficulty. Reflexes 1+ in bilateral biceps, patellar and absent in the bilateral Achilles areas. Normal gait. LABORATORY DATA ON THE DATE OF DISCHARGE: Hemoglobin 11.8, hematocrit of 34, platelet count 229,000. Sodium 133, potassium 4.4, chloride 102, carbon dioxide 28, anion gap 3, BUN 16, creatinine 0.94, glucose 96, hemoglobin A1c 5.8 , calcium 8.9. 146, cholesterol 142, LDL cholesterol 82, HDL cholesterol 30.7. Other laboratory data of note from admission: Vitamin B12 438, TSH 1.81, cortisol 4.54. DISCHARGE PLAN: The patient will be discharged to home. The patient lives in [place] for 8 months of the year and [place] for 4. The patient recommended to establish with a primary care provider for his time in [place]. The patient should follow up with his primary care provider and discuss the possible benefits as well as versus the cost and lifestyle modifications required for long-term cardiac monitoring to possibly detect paroxysmal atrial fibrillation leading to embolic stroke. The patient will have his statin dose increased. The patient was previously started on rosuvastatin at 20 mg daily and had to have it decreased due to muscle aches. The patient should decrease his statin dose for muscle aches and call a healthcare provider for recommendations. The patient should engage in activity as tolerated. The patient should discuss possible PFO closure with his fnp in [place]; however, this will not be recommended at this time in the absence of DVT. The patient should have a heart healthy diet without caffeine. The patient has been ordered to not stop taking his aspirin. The patient should return to the hospital for new weakness, chest pain, shortness of breath, or other alarming symptoms. TIME SPENT: Approximately 60 minutes were spent on this discharge, 30 of which was spent [id number] with the patient, obtaining history and physical, and discussing treatment plan. SALVADOR NAYLOR [id number]/[facility] #: [id number] [place]
[2018-04-06] MEDS ORDERED: CMC:Rosuvastatin (NF) 20 MG TAB PO SCH ×2 (09:00)
--- NOTE | 2018-04-09 06:39 | ED ---
Donte Vickers Tariq, scribed for Bradley Sierra MD on 04/04/18 at 1816 . Neurological HPI - HPI Summary HPI Summary: A 83 y/o male presents to ED c/o difficulty putting words together. According to pt, around 1100, he could not get words out for 1-2 minutes. He had a similar episode last week. He feels like he is working hard to get the words out but has trouble. The Sx resolved after a couple minutes. Additionally, pt stated that he has hot streaks and he has not been himself lately. He normally likes to do things, however, lately, he feels like he has "no life, no energy", he has been sleeping for 11-12 hours, "like a ragdoll". Pt denies any thyroid issues, however he has noticed slight dizziness. Additionally, he stated that he has right sinal migranes. He believed this was odd because normally he gets clustered headaches, not migraines, and coughing made it worse. He is originally from [place], and denies being in the increasing heat, he stated he is always inside a A/C room. As per family, he has systolic 97-99/59 and heart rate is around 90s. Has not taken Iron lately. - History of Current Complaint Chief Complaint: EDNeurologicalDeficit Stated Complaint: POS STROKE Time Seen by Provider: 04/04/18 17:23 Hx Obtained From: Patient Onset/Duration: Sudden Onset, Started weeks ago, Still Present Timing: Intermittent Episodes Lasting: - 1-2 minutes Number of Seizures: 0 Headache Location: Diffuse (Right) - Right sinus Pain Intensity: 0 Pain Scale Used: 0-10 Numeric Character: Weak, Impaired Speech Aggravating: Nothing Alleviating: Rest, Other - Time Associated Signs and Symptoms: Positive: Headache - Migraine, Weakness, Dizziness - Mild, Impaired Speech - Trouble finding words - Allergy/Home Medications Allergies/Adverse Reactions: Allergies Allergy/AdvReac Type Severity Reaction Status Date / Time Penicillins Allergy Rash Verified 04/04/18 17:25 Home Medications: Home Medications Rosuvastatin (NF) [Crestor] 20 mg PO DAILY 04/04/18 [History Confirmed 04/04/18] PMH/Surg Hx/FS Hx/Imm Hx Endocrine/Hematology History: Denies: Hx Diabetes, Hx Thyroid Disease Cardiovascular History: Reports: Hx Hypertension Respiratory History: Denies: Hx Asthma, Hx Chronic Obstructive Pulmonary Disease (COPD) GI History: Denies: Hx Ulcer - Surgical History Surgery Procedure, Year, and Place: bilat knee arthroscopies Infectious Disease History: No Infectious Disease History: Denies: Hx Hepatitis, Hx Human Immunodeficiency Virus (HIV), History Other Infectious Disease, Traveled Outside the [place] in Last 30 Days - Family History Known Family History: Positive: Cardiac Disease - parents, Other - stroke (uncle ) - Social History Alcohol Use: Daily Alcohol Amount: 1 glass wine/ day Substance Use Type: Reports: None Smoking Status (MU): Former Smoker Review of Systems Positive: Fatigue. Negative: Fever, Chills Negative: Erythema Negative: Sore Throat Negative: Chest Pain Negative: Shortness Of Breath, Cough Negative: Abdominal Pain, Vomiting, Nausea Negative: dysuria, hematuria Negative: Myalgia, Edema Negative: Rash Neurological: Other - POSITIVE: Mild Dizziness, trouble with words Positive: Headache - Migraine Physical Exam - Summary Physical Exam Summary: Constitutional: Well-developed, Well-nourished, Alert. (-) Distressed Skin: Warm, Dry HENT: Normocephalic; Atraumatic Eyes: Conjunctiva normal Neck: Musculoskeletal ROM normal neck. (-) JVD, (-) Stridor, (-) Tracheal deviation Cardio: Rhythm regular, rate normal, Heart sounds normal; Intact distal pulses; The pedal pulses are 2+ and symmetric. Radial pulses are 2+ and symmetric. (-) Murmur Pulmonary/Chest wall: Effort normal. (-) Respiratory distress, (-) Wheezes, (-) Rales Abd: Soft. (-) Tenderness, (-) Distension, (-) Guarding, (-) Rebound Musculoskeletal: (-) Edema Lymph: (-) Cervical adenopathy Neuro: Alert, Oriented x3, Strength normal, Cranial nerves II-XII are grossly intact. (-) Dysmetria, (-) Nystagmus, (-) Ataxia by finger to nose testing, (-) Sensory deficit. Psych: Mood and affect Normal GCS: 15 Triage Information Reviewed: Yes Vital Signs On Initial Exam: Initial Vitals Temp Pulse Resp BP Pulse Ox 97.1 F 72 16 140/77 97 04/04/18 17:22 04/04/18 17:22 04/04/18 17:22 04/04/18 17:22 04/04/18 17:22 Vital Signs Reviewed: Yes Diagnostics - Vital Signs Vital Signs Temp Pulse Resp BP Pulse Ox 04/04/18 18:00 70 19 99 04/04/18 17:50 65 128/77 97 04/04/18 17:22 97.1 F 72 16 140/77 97 - Laboratory Lab Results: Lab Results 04/04/18 04/04/18 Range/Units 17:51 17:51 WBC 5.1 (3.5-10.8) 10^3/ul RBC 4.18 (4.00-5.40) 10^6/ul Hgb 12.5 L (14.0-18.0) g/dl Hct 37 L (42-52) % MCV 88 (80-94) fL MCH 30 (27-31) pg MCHC 34 (31-36) g/dl RDW 14 (10.5-15) % Plt Count 231 (150-450) 10^3/ul MPV 7.3 L (7.4-10.4) um3 INR (Anticoag Therapy) 0.95 (0.77-1.02) APTT 25.8 L (26.0-36.3) seconds Result Diagrams: 04/04/18 17:51 04/04/18 17:51 Lab Statement: Any lab studies that have been ordered have been reviewed, and results considered in the medical decision making process. - CT BRAIN CT CT Interpretation Completed By: Radiologist - Normal CT of the brain. ED PHYSICIAN REVIEWED THIS RADIOLOGY REPORT. - EKG 1754 Cardiac Rate: NL EKG Rhythm: Sinus Rhythm EKG Interpretation: Negative for STEMI Course/Dx - Diagnoses Provider Diagnoses: Groin pain - Physician Notifications Discussed Care Of Patient With: Rafaela Clement Instructed by Provider To: Other - Accepts for admission Discharge - Sign-Out/Discharge Documenting (check all that apply): Discharge/Admit/Transfer - ADMIT - Discharge Plan Condition: Stable Disposition: ADMITTED TO [facility] Referrals: No Primary Care Phys,NOPCP [Primary Care Provider] - The documentation as recorded by the Donte blount Tariq accurately reflects the service I personally performed and the decisions made by me, Bradley Sierra MD.
== END 2018-04-05 15:46 | disposition home or self-care (01) ==
LOC: ED 17:12 → MEDTELE 21:27
PROVIDERS: ADMIT Student in an Organized Health Care Education/Training Program; ATTEND Student in an Organized Health Care Education/Training Program
DX: R47.01 Aphasia (principal); I10 Essential (primary) hypertension; E78.5 Hyperlipidemia, unspecified; R53.1 Weakness; D50.9 Iron deficiency anemia, unspecified; I49.1 Atrial premature depolarization; I51.7 Cardiomegaly; Z79.899 Other long term (current) drug therapy; R42 Dizziness and giddiness; R53.83 Other fatigue; Z88.0 Allergy status to penicillin; Z82.49 Family history of ischemic heart disease and other diseases of the circulatory system; Z82.3 Family history of stroke; Z87.891 Personal history of nicotine dependence
CPT/HCPCS: 36415; 70450; 70496; 70498; 70551; 80048; 80053; 80061; 81003; 82272; 82533; 82607; 83036; 84443; 85014; 85018; 85025; 85027; 85610; 85730; 87086; 93005; 93306; 93970; 99284; A9270-GY; G0378; J1644; Q9967

== ENCOUNTER 2018-06-04 14:30 | Emergency (ER) | payer MEDICARE ==
[2018-06-04 15:17] VITALS: BP 101/65
--- NOTE | 2018-06-04 16:10 | UC ---
General HPI - HPI Summary HPI Summary: This is Darrel blount, documenting for attending Daxa Yi MD. Pt is an 83 y/o M c/o intermittent low blood pressure lasting for a few months. Assoc. Sx: Dizziness, Nausea, diarrhea. Denies: CP, SOB. Pt is on BP meds and a diuretic as needed. He reports taking 50 mg of Toprol which lowered his BP too low; He was advised to cut the pills in half ~2 weeks ago. He says that his BP is typically around 117/70. Patients medication reviewed this visit. - History of Current Complaint Chief Complaint: UCGeneralIllness Stated Complaint: LOW BLOOD PRESSURE Time Seen by Provider: 06/04/18 15:55 Hx Obtained From: Patient Onset/Duration: Gradual Onset, Lasting Weeks Pain Intensity: 0 Associated Signs & Symptoms: Positive: Dizziness, Diarrhea, Nausea. Negative: Chest Pain, SOB - Allergy/Home Medications Allergies/Adverse Reactions: Allergies Allergy/AdvReac Type Severity Reaction Status Date / Time Penicillins Allergy Rash Verified 04/04/18 17:25 Home Medications: Home Medications Furosemide 20 mg PO 06/04/18 [History] Naproxen Sodium [Aleve] 06/04/18 [History] PMH/Surg Hx/FS Hx/Imm Hx Endocrine History: Other Other Endocrine History: NEG: DM Cardiovascular History: Other Other Cardiovascular History: NEG: CAD, HTN - Surgical History Surgical History: Yes Surgery Procedure, Year, and Place: bilat knee arthroscopies - Family History Known Family History: Positive: Cardiac Disease - parents, Other - stroke (uncle ) - Social History Occupation: Retired Lives: Dormitory/Roommates Alcohol Use: Daily Alcohol Amount: 1 glass wine/ day Substance Use Type: None Smoking Status (MU): Former Smoker Review of Systems Respiratory: Other - NEG: SOB Cardiovascular: Other - NEG: CP Gastrointestinal: Diarrhea, Nausea Neurological: Other - POS: Dizziness All Other Systems Reviewed And Are Negative: Yes Physical Exam Vital Signs: Initial Vital Signs Temp 98.5 F 06/04/18 15:12 Pulse 74 06/04/18 15:12 Resp 16 06/04/18 15:12 BP 101/65 06/04/18 15:12 Pulse Ox 98 06/04/18 15:12 Course/Dx - Course Course Of Treatment: We reviewed his BP readings from all previous visits. Discharge - Sign-Out/Discharge Documenting (check all that apply): Patient Departure All imaging exams completed and their final reports reviewed: No Studies - Discharge Plan Condition: Stable Disposition: HOME Patient Education Materials: Heart Healthy Diet (ED), Hypotension (ED) Referrals: [facility] [Outside] - 2 Days (call tomorrow for a follow- up appointment this week) [facility] [Outside] - 2 Days Vikas Shah MD [Medical Doctor] - (Call to establish an appointment ) Additional Instructions: -stay well hydrated. Drink plenty of non-caffinated, non-alcoholic beverages -Take your medications as instructed by your doctors. do NOT take any medications for erectile dysfunction (Viagra, Levitra) as these can significantly lower blood pressure - Okay to eat a diet with mild salt - The bloodwork that was drawn today will be reviewed by the providers at the urgent care center - if there are concerning results, you will receive a call from a care manufacturing team member - You have been given the contact information for the [facility]- call first thing tomorrow morning. You will likely be able to make an appointment at this visit. They will be able to review the bloodwork drawn today - you have also been given the contact information for the physician referral center. This office can assist you to establish with a primary care provider locally. As you requested, you have also been given the contact information for a rubber goods inspector If you develop symptoms - lightheadedness, chest pain, shortness of breath, dizziness - it is recommended you contact 911 and go to the emergency department - Attestation Statements Document Initiated by Rika: Yes Documenting Scribe: Darrel Hanley Provider For Whom Rika is Documenting (Include Credential): Daxa Yi MD. Scribe Attestation: Darrel Vickers, scribed for Daxa Yi MD. on 06/04/18 at 1746.
[2018-06-05 11:23] LABS: ABS Basophils 0 10^3/ul (0-0.2); ABS Eosinophils 0.3 10^3/ul (0-0.6); ABS Lymphocytes 1.5 10^3/ul (1.0-4.8); ABS Monocytes 0.7 10^3/ul (0-0.8); ABS Neutrophils 3.5 10^3/ul (1.5-7.7); ABS Nucleated RBC 0 10^3/ul; Eosinophil % 4.9 % (0-6); Hematocrit 39 % (42-52); Hemoglobin 13.5 g/dl (14.0-18.0); Lymphocyte % 24.9 % (25-47); Mean Corpuscular HGB Conc 34 g/dl (31-36); Mean Corpuscular Hemoglobin 30 pg (27-31); Mean Corpuscular Volume 88 fL (80-94); Mean Platelet Volume 8.8 um3 (7.4-10.4); Nucleated Red Blood Cells % 0.5; Platelet Count 260 10^3/ul (150-450); Red Blood Count 4.48 10^6/ul (4.00-5.40); Red Cell Distribution Width 14 % (10.5-15)
[2018-06-05 12:06] LABS: EGFR Non-African American 77.6 (>60)
--- NOTE | 2018-06-05 15:14 | PN ---
Progress Note - Progress Note Date of Service: 06/05/18 Note: review patient cmp and sodium is a little low at 132 but not significantly enough for any intervention at this time.
== END 2018-06-04 16:45 | disposition home or self-care (01) ==
LOC: UCEAST 14:30
DX: R03.1 Nonspecific low blood-pressure reading (principal); R42 Dizziness and giddiness; R11.0 Nausea; R19.7 Diarrhea, unspecified; Z88.0 Allergy status to penicillin; Z87.891 Personal history of nicotine dependence
CPT/HCPCS: 36415; 80053; 83735; 84443; 85025; 99211; G0463

== ENCOUNTER 2018-06-27 14:48 | Emergency (ER) | payer MEDICARE ==
[2018-06-27 15:14] VITALS: BP 111/69
--- NOTE | 2018-06-27 16:03 | UC ---
Minor Trauma HPI - HPI Summary HPI Summary: The patient is an 83-year-old male who presents here for evaluation of injuries that occurred after tripping and falling in his driveway. He sustained a hematoma and laceration to his left forehead. He also injured his left chest. He is pain-free unless he pushes on the area that he injured. He has no shortness of breath. He denies any headache or neck pain. There was no loss of consciousness. - History of Current Complaint Chief Complaint: UCTrauma Stated Complaint: FALL, HEAD INJURY L SIDE Time Seen by Provider: 06/27/18 15:56 Hx Obtained From: Patient Onset/Duration: Sudden Onset Onset Of Pain: Immediate Severity Initially: Severe Severity Currently: Mild Pain Intensity: 2 Pain Scale Used: 0-10 Numeric Mechanism Of Injury: Fall From A Standing Position Aggravating Factor(s): Other: - pushing on injured areas Alleviating Factor(s): Compression Associated Signs And Symptoms: Positive: Swelling Body - Head: 1 - hematoma/lac 2 - point tenderness here - Risk Factors Penetrating Injury Risk Factors: Negative - Allergies/Home Medications Allergies/Adverse Reactions: Allergies Allergy/AdvReac Type Severity Reaction Status Date / Time Penicillins Allergy Rash Verified 06/27/18 15:15 PMH/Surg Hx/FS Hx/Imm Hx Previously Healthy: Yes Cardiovascular History: Hypertension Neurological History: CVA - Surgical History Surgical History: Yes Surgery Procedure, Year, and Place: bilat knee arthroscopies - Family History Known Family History: Positive: Cardiac Disease - parents, Other - CVA (uncle) - Social History Alcohol Use: Daily Alcohol Amount: 1 glass wine/ day Substance Use Type: None Smoking Status (MU): Former Smoker - Immunization History Most Recent Influenza Vaccination: 06/10/18 Most Recent Pneumonia Vaccination: 06/10/18 Review of Systems Constitutional: Negative Skin: Negative Eyes: Negative ENT: Negative Respiratory: Negative Cardiovascular: Negative Gastrointestinal: Negative Genitourinary: Negative Motor: Negative Neurovascular: Negative Musculoskeletal: Negative Neurological: Negative Psychological: Negative All Other Systems Reviewed And Are Negative: Yes Physical Exam Triage Information Reviewed: Yes Appearance: Well-Appearing, No Pain Distress, Well-Nourished Vital Signs: Initial Vital Signs Temp 97.7 F 06/27/18 15:06 Pulse 84 06/27/18 15:06 Resp 16 06/27/18 15:06 BP 111/69 06/27/18 15:06 Pulse Ox 100 06/27/18 15:06 Vital Signs Reviewed: Yes Eyes: Positive: Conjunctiva Clear, Other: - no orbital rim tenderness ENT: Positive: Hearing grossly normal. Negative: Nasal congestion, Nasal drainage, Trismus, Muffled voice, Hoarse voice Neck: Positive: Supple, Nontender, No Lymphadenopathy Respiratory: Positive: Lungs clear, Normal breath sounds, No respiratory distress, No accessory muscle use. Negative: Chest non-tender Cardiovascular: Positive: RRR, No Murmur Abdomen Description: Positive: Nontender, No Organomegaly, Soft Musculoskeletal: Positive: ROM Intact, No Edema Neurological: Positive: Alert Psychological Exam: Normal Skin Exam: Other - hematoma/lac Procedures - Laceration/Wound Repair 1 Location: head Description: Linear Betadine Prep?: No Irrigated w/ Saline (ccs): 60 Laceration/Wound Explored: clean Closure: Skin Adhesive Sterile Dressing Applied?: Yes Diagnostics - Radiology No standard instances Xray Interpretation: No Acute Changes - left ribs and CXR Radiology Interpretation Completed By: Radiologist Minor Trauma Course/Dx - Differential Dx/Diagnosis Provider Diagnoses: left forehead laceration (skin adhesive repair). left rib contusion (?occult rib fracture) Discharge - Sign-Out/Discharge Documenting (check all that apply): Patient Departure All imaging exams completed and their final reports reviewed: Yes - Discharge Plan Condition: Stable Disposition: HOME Patient Education Materials: Rib Contusion (ED), Skin Adhesive Care (ED) Referrals: Rosendo Dotson MD [Primary Care Provider] - If Needed Additional Instructions: Expect a black eye tylenol don't pick at glue it will wear off in about a week - Billing Disposition and Condition Condition: STABLE Disposition: Home Images Head: 1 - lac 1.8 cm long, 2 mm wide, 3 mm deep
--- NOTE | 2018-06-27 16:34 | RAD ---
Indication: LEFT lateral upper rib pain post fall. Comparison: June 07, 2018 Technique: Dual energy PA chest and 4 view dedicated LEFT unilateral rib series. Report: Negative for LEFT rib fracture, pulmonary contusion, pleural effusion, or pneumothorax. Elevated lung volumes and mild prominence of interstitial markings. Negative for cardiomegaly. Unremarkable central pulmonary vasculature. Mildly tortuous descending thoracic aorta. IMPRESSION: #. Negative for LEFT rib fracture. #. Stigmata of probable obstructive lung disease. No acute cardiopulmonary process evident.
[2018-06-27] MEDS ORDERED: Tetan/Diph/Pertus SYR(Tdap)* 0.5 ML SYR(BOOSTRIX) use SYR IM ONE (17:17)
== END 2018-06-27 17:39 | disposition home or self-care (01) ==
LOC: UCEAST 14:48
DX: S01.81XA Laceration without foreign body of other part of head, initial encounter (principal); S20.212A Contusion of left front wall of thorax, initial encounter; W01.0XXA Fall on same level from slipping, tripping and stumbling without subsequent striking against object, initial encounter; Y93.9 Activity, unspecified; Y92.412 Parkway as the place of occurrence of the external cause; Z23 Encounter for immunization; Z88.0 Allergy status to penicillin; Z87.891 Personal history of nicotine dependence
CPT/HCPCS: 12011; 90471; 90715; 99211; G0463